=== PATIENT | male | born 1970 | race Caucasian/White ===

== ENCOUNTER 2017-01-22 08:27 | Inpatient (IN) | payer OTHER ==
[~2017-01-22] VITALS: Ht 177.8 cm; Wt 105.9 kg
[~2017-01-22 08:27] MED LIST: ASPIR 8181 M1 PO; FIORINAL 50-321 EACH PO; HYDROCODON-ACE1 EAC8 PO; LOW DOSE ASPIRI81 M1 PO; MOTRIN600 MG PO; NARCAN4 MG NS; SKELAXIN800 MG PO
[2017-01-22 10:20] LABS: ADD MIUA? YES; BILIRUBIN NEGATIVE; BLOOD LARGE; COLOR YELLOW ((YELLOW)); GLUCOSE (STRIP) NEGATIVE; KETONES NEGATIVE; LEUKOCYTES NEGATIVE; NITRITE NEGATIVE; PROTEIN (STRIP) 30; SPECIFIC GRAVITY 1.021 (1.000-1.030); UROBILINOGEN 0.2 MG/DL (0.2-1.0)
[2017-01-22 10:24] LABS: BACTERIA RARE /HPF; CALCIUM OXALATE CRYSTALS 2+ /HPF; EPITHELIAL CELLS RARE /HPF; MUCUS TRACE /LPF; RED BLOOD CELLS TNTC /HPF (0-5); UCUL ADDED? NO; WHITE BLOOD CELLS 0-5 /HPF (0-5)
[2017-01-22] MEDS ORDERED: PERCOCET 5/31 TABLET PO (13:25)
[2017-01-22] MEDS ORDERED: FLOMAX0.4 MG PO (13:30)
[2017-01-22] MEDS ORDERED: NAPROXEN500 MG PO (13:30)
[2017-01-22 14:30] LABS: EOSINOPHIL (%) 0.6 % (0-5); HEMATOCRIT 38.5 % (38.0-50.0); IMMATURE GRANULOCYTE (%) 0.4 % (0.0-0.7); INSTRUMENT ABS NEUTROPHIL CT 5.1 K/uL; LYMPHOCYTE COUNT 1.2 K/uL (1.0-2.8); MCH 30.1 PG (29.0-34.0); MCHC 33.5 G/DL (30.0-36.0); MEAN PLAT.VOLUME 9.9 uM^3 (9.0-12.4); MONOCYTE (%) 10.4 % (3-12); MONOCYTE COUNT 0.7 K/uL (0-0.8); NEUTROPHIL COUNT 5.1 K/uL (1.8-6.4); PLATELET COUNT 123 K/uL (156-360); RBC DIS.WIDTH-CV 12.7 % (11.8-14.6); RBC DIS.WIDTH-SD 41.7 % (39-53); RED BLOOD COUNT 4.28 M/uL (4.00-5.50); WHITE BLOOD COUNT 7.1 K/uL (4.1-10.2)
[2017-01-22 14:38] LABS: CHLORIDE 104 mEq/L (99-109); POTASSIUM 4.3 mEq/L (3.7-5.4); SODIUM 136 mEq/L (136-147)
[2017-01-22 14:40] LABS: GLUCOSE 94 mg/dL (70-99)
[2017-01-22 14:41] LABS: ANION GAP 6 MEQ/L (2-14)
[2017-01-22 14:42] LABS: TOTAL BILIRUBIN 0.3 mg/dL (0.0-1.0)
[2017-01-22 14:43] LABS: ALKALINE PHOSPHATASE 49 IU/L (3-129)
[2017-01-22 14:44] LABS: GFR ESTIMATE (CALCULATED) > 59 mL/min/
[2017-01-22 14:45] LABS: UREA NITROGEN (BUN) 16 mg/dL (9-23)
[2017-01-22] MEDS ORDERED: ALEVE220 MG PO (16:09)
[2017-01-22 17:38] VITALS: BP 133/90
[2017-01-22 18:00] VITALS: BP 133/90
[2017-01-22 19:49] VITALS: BP 133/87
[2017-01-22 23:50] VITALS: BP 128/83
[2017-01-23 04:28] VITALS: BP 126/81
[2017-01-23 07:19] VITALS: BP 111/74
[2017-01-23 08:22] LABS: ANION GAP 8 MEQ/L (2-14); CHLORIDE 104 MEQ/L (99-109); GFR ESTIMATE (CALCULATED) > 59 mL/min/; GLUCOSE 88 mg/dL (70-99); SAMPLE HEMOLYSIS CHECK 0; SAMPLE ICTERIC CHECK 0; SAMPLE LIPEMIA CHECK 0; SODIUM 140 MEQ/L (136-147); UREA NITROGEN (BUN) 16 mg/dL (9-23)
[2017-01-23] MEDS ORDERED: ZOFRAN ODT4 MG PO (10:17)
[2017-01-23] MEDS ORDERED: TAMSULOSIN HCL0.4 MG PO (10:17)
[2017-01-23] MEDS ORDERED: ENDOCET 5-3251 EACH PO (10:17)
[2017-01-23] MEDS ORDERED: BACTRIM,SEPT1 TABLET PO (10:17)
== END 2017-01-23 13:43 | disposition home or self-care (01) | DRG 669 ==
LOC: EME 08:27 → 3EAST 15:01 → EDOF 15:01 → 3EAST 17:28
PROVIDERS: Internal Medicine; Physician Assistant
DX: N13.2 Hydronephrosis with renal and ureteral calculous obstruction (principal); Z68.33 Body mass index [BMI] 33.0-33.9, adult; Z87.442 Personal history of urinary calculi; Z87.891 Personal history of nicotine dependence; Z83.3 Family history of diabetes mellitus; Z82.49 Family history of ischemic heart disease and other diseases of the circulatory system
CPT/HCPCS: 74176; 80048; 80053; 81003; 85025; 99281; 99285; C1876; J0690; J1170; J1885; J2250; J2405; J3010; J7042; J7050; J7120; S0028

== ENCOUNTER 2017-01-26 23:32 | Emergency (ER) | payer OTHER ==
[~2017-01-26] VITALS: Ht 177.8 cm; Wt 103.5 kg
[~2017-01-26 23:32] MED LIST changes: +ALEVE220 MG PO; +BACTRIM,SEPT1 TABLET PO; +ENDOCET 5-3251 EACH PO; +FLOMAX0.4 MG PO; +NAPROXEN500 MG PO; +PERCOCET 5/31 TABLET PO; +TAMSULOSIN HCL0.4 MG PO; +ZOFRAN ODT4 MG PO
[2017-01-27 00:51] LABS: HEMATOCRIT 36.1 % (38.0-50.0); MCH 30.4 PG (29.0-34.0); MCHC 34.1 G/DL (30.0-36.0); MCV 89.4 FL (86-99); MEAN PLAT.VOLUME 9.9 uM^3 (9.0-12.4); PLATELET COUNT 163 K/uL (156-360); RBC DIS.WIDTH-CV 12.4 % (11.8-14.6); RBC DIS.WIDTH-SD 40.5 % (39-53); RED BLOOD COUNT 4.04 M/uL (4.00-5.50); WHITE BLOOD COUNT 6.5 K/uL (4.1-10.2)
[2017-01-27 00:58] LABS: CHLORIDE 105 mEq/L (99-109); POTASSIUM 3.9 mEq/L (3.7-5.4); SODIUM 138 mEq/L (136-147)
[2017-01-27 01:00] LABS: GLUCOSE 118 mg/dL (70-99)
[2017-01-27 01:01] LABS: ANION GAP 6 MEQ/L (2-14)
[2017-01-27 01:02] LABS: TOTAL BILIRUBIN 0.3 mg/dL (0.0-1.0)
[2017-01-27 01:04] LABS: ALKALINE PHOSPHATASE 48 IU/L (3-129); GFR ESTIMATE (CALCULATED) > 59 mL/min/
[2017-01-27 01:05] LABS: UREA NITROGEN (BUN) 15 mg/dL (9-23)
[2017-01-27 01:07] LABS: LIPASE 150 U/L (1.0-51.0)
[2017-01-27 01:23] LABS: ADD MIUA? YES; BILIRUBIN NEGATIVE; BLOOD MODERATE; COLOR YELLOW ((YELLOW)); GLUCOSE (STRIP) NEGATIVE; KETONES NEGATIVE; LEUKOCYTES NEGATIVE; NITRITE NEGATIVE; PROTEIN (STRIP) 30; SPECIFIC GRAVITY 1.015 (1.000-1.030); UROBILINOGEN 0.2 MG/DL (0.2-1.0)
[2017-01-27 01:31] LABS: BACTERIA NONE SEEN /HPF; EPITHELIAL CELLS NONE SEEN /HPF; GRANULAR CASTS 0-5 /LPF; MUCUS TRACE /LPF; RED BLOOD CELLS TNTC /HPF (0-5); UCUL ADDED? NO; WHITE BLOOD CELLS 0-5 /HPF (0-5)
[2017-01-27] MEDS ORDERED: DILAUDID2 MG PO (02:02)
[2017-01-27] MEDS ORDERED: TORADOL10 MG PO (02:02)
[2017-01-27 02:17] VITALS: BP 134/89
== END 2017-01-27 02:18 | disposition home or self-care (01) ==
LOC: EME 23:32
PROVIDERS: Emergency Medicine
DX: G89.18 Other acute postprocedural pain (principal); R10.2 Pelvic and perineal pain; R31.9 Hematuria, unspecified; Z87.442 Personal history of urinary calculi; Z87.891 Personal history of nicotine dependence; Z86.13 Personal history of malaria
CPT/HCPCS: 80053; 81003; 83690; 85027; 99281; 99285; J2270; J2405; J7030